=== PATIENT | male | born 1970 | race African-American/Black ===

== ENCOUNTER → 2016-06-08 | Outpatient (CLI) | payer BC ==
--- NOTE | ~2016-06-08 | CT3 ---
[facility] A Service of [facility] RADIOLOGY TEXT RESULTS PATIENT: SAMSON JACKSON LOCATION: [facility] : 72 UNIT #: [id number] AGE: [address]: Johnny Krueger MD SEX: M ORDER DR: [id number] [facility]. [place], [place] [address] [id number] O MR#: [id number] Acc #: [id number] NAME: SAMSON JACKSON : 1970 SEX: M STUDY DATE/TIME: 06/08/2016 13:19 UNIT: [facility] ROOM: STUDY DESCRIPTION: CT Abd and Pelv WWo Cont Attending Physician: Johnny Krueger M.D. Referring Physician: Johnny Krueger M.D. Ordering Physician: Johnny Krueger M.D. Primary Care Physician: Forrest Mcfadden M.D. MEDICAL IMAGING REPORT This report is preliminary unless electronic signature is present EXAM CT abdomen and pelvis without and with contrast INDICATIONS Microscopic hematuria since February 2016. PROCEDURE Unenhanced CT of the abdomen and pelvis. Postcontrast CT of the abdomen and pelvis with multiphase acquisition through the kidneys and 5-minute delayed imaging through the abdomen and pelvis. 100 mL of Isovue-370. COMPARISON 05/28/2014. This CT exam was performed with one or more of the following radiation dose reduction techniques: automatic exposure control, adjustment of mA and/or kV according to patient size, and iterative reconstruction. FINDINGS Study is degraded by body habitus. Abdomen without contrast: Included lung bases are clear. Hepatic steatosis. No radiodense gallstones. There are 2 nonobstructing calculi in the right kidney each measuring approximately 1.3 cm. They have increased in size since the prior previously measuring approximately 5 mm. No radiodense ureteral calculus. Pelvis without contrast: No radiodense bladder calculus. Abdomen with contrast: Kidneys enhance symmetrically. Two left renal cysts largest at the lower pole measuring up to 8.2 cm. Distal right ureter is not well opacified. Otherwise no abnormal filling defect is [facility] A Service of [facility] RADIOLOGY TEXT RESULTS PATIENT: SAMSON JACKSON LOCATION: [facility] : 71 UNIT #: [id number] AGE: [address]: Johnny Krueger MD SEX: M ORDER DR: seen along the course of the opacified segments. The liver is borderline enlarged at 19.2 cm. No appreciable liver mass. The spleen, adrenal glands, pancreas, gallbladder unremarkable. Small hiatal hernia. Bowel loops are nondilated. 4.9 cm fat-containing umbilical hernia. Pelvis with contrast: No pelvic mass or fluid. No aggressive appearing bone lesion. IMPRESSION 1. Two nonobstructing calculi in the right kidney are larger than on the 2015 study. There is no radiodense ureteral calculus or bladder calculus. 2. Two left renal cysts. No enhancing renal mass. 3. Borderline hepatomegaly with steatosis. 4. Other incidental findings are detailed above. Dictated by... Mehrdad Carmona M.D. THIS IS AN ELECTRONICALLY VERIFIED REPORT Mehrdad Carmona M.D. at 06/12/2016 10:02 AM Vitor TD: 06/11/2016 12:46 JOB #: [id number] MEDICAL IMAGING REPORT Page 1 of 1 COPY
[2016-06-08 14:16] LABS: POC - CREATININE 1.28 mg/dL (0.64-1.27); POC - GFR >60.0 mL/min (>60)
== END | disposition home or self-care (01) ==
LOC: CCAT 12:47
PROVIDERS: Urology
DX: R31.29 Other microscopic hematuria (principal); N20.0 Calculus of kidney; N28.1 Cyst of kidney, acquired; K76.0 Fatty (change of) liver, not elsewhere classified
CPT/HCPCS: 74178; 82565; Q9967